=== PATIENT | female | born 1960 | race Caucasian/White ===

== ENCOUNTER 2019-11-28 09:57 | Outpatient (CLI) | payer BC | END 2019-11-28 23:59 | disposition home or self-care (01) | LOC: CFH 09:57 | PROVIDERS: ATTEND Family Medicine | DX: Z12.31 Encounter for screening mammogram for malignant neoplasm of breast (principal) | CPT/HCPCS: 77067 ==

== ENCOUNTER 2021-03-15 14:24 | Outpatient (CLI) | payer BC | END 2021-03-15 23:59 | disposition home or self-care (01) | LOC: CFH 14:24 | PROVIDERS: ATTEND Family Medicine | DX: Z12.31 Encounter for screening mammogram for malignant neoplasm of breast (principal) | CPT/HCPCS: 77063; 77067 ==

== ENCOUNTER → 2021-05-06 | Outpatient (CLI) | payer BC | END | disposition home or self-care (01) | LOC: CFH 07:41 | PROVIDERS: ATTEND Family Medicine | DX: K76.0 Fatty (change of) liver, not elsewhere classified (principal); R10.84 Generalized abdominal pain; R74.8 Abnormal levels of other serum enzymes | CPT/HCPCS: 76705 ==